=== PATIENT | male | born 1940 | race Caucasian/White ===

== ENCOUNTER → 2017-03-03 | Outpatient (CLI) | payer OTHER, BC ==
[~2017-03-03] MED LIST: ASPCH81X PO; CEPH500C2 PO; LISI10TA PO; METO-217 PO; PRLSR20 PO; SIMV20TA2 PO; TERA5CAP PO
[2017-03-03 11:08] LABS: ALT/SGPT 26 U/L (12-78); AST/SGOT 17 U/L (15-37); BLOOD UREA NITROGEN 13 mg/dl (7-18); BUN/CREATININE RATIO 13.4 (10-20); CALCIUM 9.1 mg/dl (8.5-10.1); CARBON DIOXIDE 30 mmol/L (21-32); CHLORIDE 106 mmol/L (98-107); GLUCOSE 93 mg/dl (70-99); SODIUM 141 mmol/L (136-145)
[2017-03-03 11:11] LABS: CHOLESTEROL 142 mg/dl (0-200); CHOLESTEROL/HDL RATIO 2.5; HDL CHOLESTEROL 57 mg/dl; LDL CHOLESTEROL CALCULATED 58 mg/dl; TRIGLYCERIDES 134 mg/dl (0-150); VERY LOW DENSITY LIPOPROT CALC 27 mg/dl
[2017-03-03 11:18] LABS: FREE PSA 1.21 ng/ml; PROSTATE SPECIFIC ANTIGEN 8.62 ng/ml (0.000-4.000)
[2017-03-03 11:55] LABS: ESTIMATED AVERAGE GLUCOSE 123 mg/dl; HA1C FLAG Normal (Normal)
== END | disposition home or self-care (01) ==
LOC: C.LABBC 08:01
PROVIDERS: ATTEND Internal Medicine
DX: R97.20 Elevated prostate specific antigen [PSA] (principal); E78.5 Hyperlipidemia, unspecified; R73.01 Impaired fasting glucose

== ENCOUNTER 2017-03-08 08:51 | Emergency (ER) | payer OTHER, BC ==
[~2017-03-08] VITALS: Ht 177.8 cm; Wt 82.7 kg
[2017-03-08 08:56] VITALS: TEMP 36.6; Ht 177.8 cm; Wt 82.7 kg
[2017-03-08] MEDS ORDERED: SIMV20TA2 PO (09:18)
[2017-03-08] MEDS ORDERED: PRLSR20 PO (09:18)
[2017-03-08] MEDS ORDERED: LISI10TA PO (09:18)
[2017-03-08] MEDS ORDERED: ASPCH81X PO (09:18)
[2017-03-08] MEDS ORDERED: METO-217 PO (09:18)
[2017-03-08] MEDS ORDERED: TERA5CAP PO (09:18)
[2017-03-08] MEDS ORDERED: CEPH500C2 PO (09:44)
--- NOTE | 2017-03-08 09:44 | EMERGENCY ROOM VISIT NOTE ---
ED Visit Note First contact with patient: 09:15 CHIEF COMPLAINT: Tick bite HISTORY OF PRESENT ILLNESS: Patient is a 76-year-old white male who presents to the emergency department for evaluation of a tick bite site. Patient states that he removed a tick from his medial right thigh yesterday afternoon. He used a Tick Twister and is certain that he removed the entire tick. He states that the bite site looks completely fine last evening after he removed the tick , but when he woke up today he noted that was slightly red and firm around the tick bite site. He denies that it is painful. He states that he has removed multiple ticks in the past and has had several tick bites and has never had an area appear similar to this afterwards. He denies any prior history of skin infections or abscesses. He has done nothing for his symptoms. REVIEW OF SYSTEMS: Review of systems as per HPI. All other systems reviewed were negative. At least 6 systems reviewed. PMH: Electronic medical records are reviewed and summarized as above/below. See Problem List. His tetanus is up-to-date. SOCIAL HISTORY: Patient lives at home. Non-smoker, occasional alcohol use. PHYSICAL EXAM: Vital Signs: Reviewed Nurse's notes. CONSTITUTIONAL: Patient is a well-appearing 76-year-old white male who is awake and alert and in no acute distress. INTEGUMENTARY: Examination of the proximal medial right thigh showed the tick bite site. There is a very small area of ecchymosis centrally. There is some surrounding faint erythema, with some induration of the soft tissue. No fluctuance, increased warmth or overtly cellulitic changes. No lymphangitic streaking. ED course: The patient was seen and evaluated as above. He is concerned that the area could be infected. Possibility of this was discussed with the patient , versus the area being slightly red and indurated as just a reaction to the bite. The patient was reassured that it was unlikely that the tick was in place long enough to transmit Lyme disease and he expressed understanding of this. He was encouraged to continue to monitor the area for the next 24-36 hours and was provided a prescription for Keflex that he can start should he notice any worsening signs of infection. At this time he does not have any findings for infection, cellulitis or abscess. I do not suspect retained foreign body. Problem List Medical Problems: (1) Esophageal Reflux Status: Chronic (2) Hyperlipidemia, Unspecified Status: Chronic (3) Hypertension Nos Status: Chronic (4) Tick bite Status: Resolved Current/Historical Medications Scheduled Aspirin (Aspirin Chewable), 81 MG PO QPM Cephalexin Monohydrate (Keflex), 500 MG PO TID Lisinopril (Prinivil), 10 MG PO QAM Metoprolol Succinate (Toprol Xl), 50 MG PO QAM Omeprazole (Prilosec), 20 MG PO QAM Simvastatin (Zocor), 20 MG PO QPM Terazosin (Hytrin), 5 MG PO HS Allergies Coded Allergies: No Known Allergies (Unverified , 03/08/17) Vital Signs Date Time Temp Pulse Resp B/P Pulse Ox O2 Delivery O2 Flow Rate FiO2 03/08/17 09:52 69 18 142/87 99 03/08/17 08:56 36.6 72 16 151/91 96 Room Air Departure Information Impression Primary Impression: Tick bite Prescriptions Cephalexin Monohydrate (KEFLEX) 500 Mg Cap 500 MG PO TID, #21 CAP Prov: Ekta Mcgill PA 03/08/17 Referrals Wilmer Hernandez M.D. (PCP) Patient Instructions My [facility] Additional Instructions Keep antibiotic ointment on bite site for 2 days. Use Ibuprofen or Tylenol as needed for pain/discomfort. Watch for signs of infection; increasing redness and swelling, pus like drainage or fevers. If you notice these, start the antibiotics as prescribed. Follow up with family physician for continued care and treatment; rashes, bullet lesion, muscle or joint pain or any signs of infection.
[2017-03-08 09:52] VITALS: BP 142/87; PULSE 69; O2SAT 99
== END 2017-03-08 09:53 | disposition home or self-care (01) ==
LOC: C.EDB 08:56
DX: S70.361A Insect bite (nonvenomous), right thigh, initial encounter (principal); W57.XXXA Bitten or stung by nonvenomous insect and other nonvenomous arthropods, initial encounter; I10 Essential (primary) hypertension; K21.9 Gastro-esophageal reflux disease without esophagitis; E78.5 Hyperlipidemia, unspecified; Z79.82 Long term (current) use of aspirin; Z79.899 Other long term (current) drug therapy

== ENCOUNTER 2017-04-05 09:27 | Emergency (ER) | payer OTHER, BC ==
[~2017-04-05] VITALS: Ht 170.2 cm; Wt 78.7 kg
[2017-04-05 09:30] VITALS: TEMP 36.7; Ht 170.2 cm; Wt 78.7 kg
[2017-04-05 09:50] VITALS: BP 156/94; PULSE 59; O2SAT 95
--- NOTE | 2017-04-05 09:57 | EMERGENCY ROOM VISIT NOTE ---
History Report prepared by Silvino: Madeline Ventura Under the Supervision of: Dr. Tyson Cartagena M.D. First contact with patient: 09:44 Chief Complaint: BITE Stated Complaint: TICK History of Present Illness The patient is a 76 year old male who presents to the Emergency Room with complaints of a tick bite yesterday. He was outside yesterday. [facility] and often gets tick bites. He noticed the tick bite behind the back of his right knee when he started having itching behind his right leg. He is up to date on his tetanus. Source of History: patient Onset: yesterday Position: knee (right) Quality: other (tick bite) Timing: other (persistent) Note: Pt reports itching. Review of Systems See HPI for pertinent positives & negatives. A total of 6 systems reviewed and were otherwise negative. Past Medical & Surgical Medical Problems: (1) Esophageal Reflux (2) Hyperlipidemia, Unspecified (3) Hypertension Nos (4) Tick bite Family History Hypertension Social History Smoking Status: Never Smoker Marital Status: Housing Status: lives with significant other Occupation Status: retired Current/Historical Medications Scheduled Aspirin (Aspirin Chewable), 81 MG PO QPM Cephalexin Monohydrate (Keflex), 500 MG PO TID Lisinopril (Prinivil), 10 MG PO QAM Metoprolol Succinate (Toprol Xl), 50 MG PO QAM Omeprazole (Prilosec), 20 MG PO QAM Simvastatin (Zocor), 20 MG PO QPM Terazosin (Hytrin), 5 MG PO HS Allergies Coded Allergies: No Known Allergies (Unverified , 03/08/17) Physical Exam Vital Signs Date Time Temp Pulse Resp B/P Pulse Ox O2 Delivery O2 Flow Rate FiO2 04/05/17 09:50 59 18 156/94 95 Room Air 04/05/17 09:30 36.7 63 18 143/86 98 Room Air Physical Exam GENERAL: sitting next to the bed in a chair, no distress. NEURO: awake, alert, and oriented x3. SKIN: there is a small tick embedded in the skin behind the right knee, no surrounding erythema or cellulitis, the tick is not engorged. Medical Decision & Procedures Medications Administered Medications (Trade) Dose Ordered Sig/Juvencio Route Start Time Stop Time Status Last Admin Dose Admin Doxycycline Hyclate (Vibramycin Cap) 200 mg ONE ONCE PO 04/05/17 10:00 04/05/17 10:01 DC 04/05/17 09:56 200 MG Procedure Tick removal: Using a tick twist, the tick was removed without complication. ED Course 0945: The patient was evaluated in room B7. A complete history and physical exam was performed. 951: Reevaluated the patient. Discussed results and discharge instructions: He verbalized understanding and agreement. The patient is ready for discharge. 1000: Doxycycline Hyclate 200 mg PO. Medical Decision Differential diagnoses considered include cellulitis, insect bite, tick bite. The patient presents with a tick embedded in the skin in the area of the posterior left knee. There was no cellulitis. The patient's tetanus was current. The tick was not engorged. Using a tick twist, the tick was removed without complication. The entire tick was removed. The patient was given oral doxycycline, he is being discharged, he was warned about the possibility of Lyme disease. Impression Primary Impression: Tick bite Scribe Attestation The scribe's documentation has been prepared under my direction and personally reviewed by me in its entirety. I confirm that the note above accurately reflects all work, treatment, procedures, and medical decision making performed by me. Departure Information Dispostion Home / Self-Care Referrals Wilmer Hernandez M.D. (PCP) Forms HOME CARE DOCUMENTATION FORM, IMPORTANT VISIT INFORMATION Patient Instructions My [facility] Additional Instructions watch for infection--redness or rash or fever see your doctor or us in the ER if you develop flu like symptoms
[2017-04-05] MEDS ORDERED: DOXYCYCLINE HYCLATE 100 MG CAP PO ONE (10:00)
== END 2017-04-05 10:02 | disposition home or self-care (01) ==
LOC: C.EDB 09:28
DX: S80.261A Insect bite (nonvenomous), right knee, initial encounter (principal); W57.XXXA Bitten or stung by nonvenomous insect and other nonvenomous arthropods, initial encounter; I10 Essential (primary) hypertension; E78.5 Hyperlipidemia, unspecified; K21.9 Gastro-esophageal reflux disease without esophagitis; Z79.82 Long term (current) use of aspirin; Z79.899 Other long term (current) drug therapy; Z82.49 Family history of ischemic heart disease and other diseases of the circulatory system

== ENCOUNTER → 2017-06-27 | Outpatient (CLI) | payer OTHER, BC ==
[2017-06-27 11:11] LABS: % FREE PSA 16.9 %; FREE PSA 1.03 ng/ml; PROSTATE SPECIFIC ANTIGEN 6.11 ng/ml (0.000-4.000)
== END | disposition home or self-care (01) ==
LOC: C.LABBC 09:05
PROVIDERS: ATTEND Urology
DX: R33.9 Retention of urine, unspecified (principal)

== ENCOUNTER → 2017-09-29 | Outpatient (CLI) | payer OTHER, BC ==
[~2017-09-29] MED LIST changes: -CEPH500C2 PO
[2017-09-29 11:08] LABS: ALT/SGPT 21 U/L (12-78); AST/SGOT 13 U/L (15-37); BLOOD UREA NITROGEN 13 mg/dl (7-18); BUN/CREATININE RATIO 13.7 (10-20); CALCIUM 8.9 mg/dl (8.5-10.1); CARBON DIOXIDE 27 mmol/L (21-32); CHLORIDE 105 mmol/L (98-107); CREATININE 0.97 mg/dl (0.60-1.40); GLUCOSE 99 mg/dl (70-99); POTASSIUM 4.3 mmol/L (3.5-5.1); SODIUM 139 mmol/L (136-145)
[2017-09-29 11:12] LABS: CHOLESTEROL 155 mg/dl (0-200); CHOLESTEROL/HDL RATIO 2.4; HDL CHOLESTEROL 64 mg/dl; LDL CHOLESTEROL CALCULATED 62 mg/dl; TRIGLYCERIDES 145 mg/dl (0-150); VERY LOW DENSITY LIPOPROT CALC 29 mg/dl
[2017-09-29 11:42] LABS: ESTIMATED AVERAGE GLUCOSE 120 mg/dl; HA1C FLAG Normal (Normal)
== END | disposition home or self-care (01) ==
LOC: C.LABBC 08:09
PROVIDERS: ATTEND Internal Medicine
DX: R73.03 Prediabetes (principal); E78.5 Hyperlipidemia, unspecified; I10 Essential (primary) hypertension

== ENCOUNTER → 2018-03-30 | Outpatient (CLI) | payer OTHER, BC ==
[2018-03-30 10:57] LABS: ALT/SGPT 20 U/L (12-78); AST/SGOT 13 U/L (15-37); BLOOD UREA NITROGEN 18 mg/dl (7-18); CALCIUM 9.1 mg/dl (8.5-10.1); CARBON DIOXIDE 28 mmol/L (21-32); CREATININE 1.02 mg/dl (0.60-1.40); GLUCOSE 106 mg/dl (70-99); SODIUM 140 mmol/L (136-145)
[2018-03-30 11:01] LABS: CHOLESTEROL 148 mg/dl (0-200); LDL CHOLESTEROL CALCULATED 65 mg/dl
[2018-03-30 11:02] LABS: HEMOGLOBIN A1C 5.8 % (4.5-5.6)
== END | disposition home or self-care (01) ==
LOC: C.LABBC 08:19
PROVIDERS: ATTEND Internal Medicine
DX: I10 Essential (primary) hypertension (principal); E78.5 Hyperlipidemia, unspecified; R73.03 Prediabetes

== ENCOUNTER → 2018-06-30 | Outpatient (CLI) | payer OTHER, BC | END | disposition home or self-care (01) | LOC: C.LABBC 09:05 | PROVIDERS: ATTEND Urology | DX: R97.20 Elevated prostate specific antigen [PSA] (principal) ==

== ENCOUNTER 2024-08-14 12:53 | Inpatient (IN) ==
--- NOTE | 2024-08-14 13:47 | Emergency Department Note ---
Impression & Plan Chest pain, Non-ST elevation [place] (NSTEMI) ED Provider Note HISTORY OF PRESENT ILLNESS: Patient is an 83-year-old male presenting with chest pain. Patient reports has been having intermittent episodes of chest pain over the last 3 days. Reports the pain occurs at random. He states 3 days ago it only happened once and lasted for about 10 minutes. He states that yesterday it occurred once and then today he was awoken up from sleep this morning with substernal chest pain. He states he had another episode of pain about an hour and a half prior to arrival. Describes the pain as a pressure-like sensation. Denies any radiation of the pain into his back, abdomen or shoulder. He denies any associated shortness of breath or nausea with the pain. He denies ever having pain like this before. Denies any history of DVT or PEs. Denies any history of cardiac stents. He is chest pain-free on my assessment in the ER. ROS: as above PHYSICAL EXAM: Constitutional: Patient appears in no acute distress. HENT: Head: Normocephalic and atraumatic. Eyes: EOMI, PERRL Mouth/Throat: Mucous membranes moist. Neck: Trachea midline. Neck supple. Cardiovascular: RRR, No murmurs, rubs or gallops. Intact distal pulses. Pulmonary/Chest: No respiratory distress. Breath sounds clear and equal bilaterally. No wheezes or rales. Abdominal: Abdomen soft, no tenderness, rebound or guarding. Musculoskeletal: No edema, tenderness or deformity noted. Skin: Warm and dry. No rash, erythema, pallor or cyanosis Psychiatric: Appropriate mood and affect for situation. Neurological: Alert and keenly responsive. CN II-XII grossly intact, moving all extremities equally and fully. MDM: - Vitals signs stable. - History obtained via patient. History as above. - Chronic conditions affecting care: HTN; HLD; TIA - Differential diagnoses include, but are not limited to: Acute coronary syndrome; pulmonary embolism; dissection; tension pneumothorax; esophageal rupture; pneumonia - Order placed for continuous cardiac monitoring. At this time, monitor showed rate of 67 bpm with normal sinus rhythm, per my interpretation. - External medical records reviewed. Primary care visit note dated 08/05/2024 was reviewed. Patient was seen after an ER visit for acute right upper arm pain. He was prescribed prednisone 20 mg twice daily for 7 days. - EKG interpreted by myself showed normal sinus rhythm. Rate 63 bpm. QT 444. No acute ischemic changes. Noted to have T wave inversions in leads I and aVL. When compared to an EKG from 2019, these are new inversions in the T waves. - Laboratory workup interpreted by myself showed normal WBC; normal PT/INR; stable electrolytes; elevated troponin (10.9.8); normal lipase - CXR negative for pneumonia, per my interpretation - Patient took his 81 mg aspirin this morning. Given 243 mg aspirin in the ER. - Repeat EKG obtained at 15:00, which is about 3.5 hours post last episode of chest pain. EKG interpreted by myself showed normal sinus rhythm. Rate 60 bpm. QT 450. No acute ischemic changes noted to have persistent T wave inversions in leads I and aVL. - Discussion was had with piano case maker about patient's case and need for admission - Hospitalist, Dr. Welsh, consulted for admission - [facility]. I have personally spent 37 minutes of critical care time in the direct management of this patient. This includes bedside care, interpretation of diagnostic studies, and testing, discussion with consultants, patient, and family members, and other required patient management activities. This 37 minutes is in excess of all separately billable procedures. ASSESSMENT AND PLAN: Diagnosis: chest pain; NSTEMI Plan: admit Past Med/Surg History Problem List (Updated 08/14/24 @ 14:37 by Radha Hall MD) Non-ST elevation TX (NSTEMI) (Acute) Chest pain (Acute) HTN (hypertension) (Acute) Pain in humerus (Acute) History of TIA (transient ischemic attack) B12 deficiency Current use of proton pump inhibitor TIA (transient ischemic attack) Elevated prostate specific antigen (PSA) Esophageal reflux (Acute) Enlarged prostate with lower urinary tract symptoms (LUTS) (Acute) Arthritis (Acute) Benign prostate hyperplasia (Acute) Gastro-esophageal reflux (Acute) Hyperlipidemia (Acute) Hypertension (Acute) Ocular hypertension, unspecified eye (Acute) pt unaware Incomplete emptying of bladder due to benign prostatic hyperplasia (Acute) Pre-diabetes (Acute) Primary osteoarthritis of hand (Acute) Medical History Imbalance Heel pain Encounter for pre-operative examination Osteoarthritis History of COVID-19 Swallowing difficulty History of esophageal dilatation Surgical History History of cataract surgery History of esophagogastroduodenoscopy (EGD) History of tonsillectomy Hx of prostate biopsy Family History Grandmother (Maternal) Myocardial infarction Father Aortic aneurysm Stroke Grandfather (Paternal) Cancer Family/Other Hypertension Sister Rheumatic fever Breast cancer Grandfather (Maternal) Stroke Mother Stroke Denies family history of Ovarian cancer Prostate cancer Colorectal cancer Social History Smoking Status: Never smoker Second Hand Exposure: No; Do You Dip or Chew Tobacco: No; Hx Alcohol Use: Yes Alcohol type: beer, wine and hard liquor Hx Substance Use: No Preferred Language: Albanian Communication Ability: Effective Visual Impairment: No Limitations Hearing Ability: Normal Director Of Real Estate Required: No Beliefs That Will Affect Care: None marital status: Current Living Situation: Spouse current occupational status: retired Feels Safe at Home: Yes Childhood Exposure to Second-Hand Smoke: No Dental Care, Regularly: Yes Physical Activity Frequency: 5-6 Times per Week Physical Activity Frequency Comment: cut and split wood, garcia, golf Seatbelt Use: always Sunscreen Use: No Assistive Devices: Glasses Allergies Allergies Allergy/AdvReac Type Severity Reaction Status Date / Time No Known Allergies Allergy Verified 08/05/24 09:30 Home Meds Home Medications Medication Instructions Recorded Confirmed aspirin 81 mg tablet,delayed 81 mg PO HS 06/09/19 08/14/24 release (Aspir-) omeprazole magnesium 20 mg 20 mg PO QAM 06/09/19 08/14/24 tablet,delayed release (Prilosec OTC) ibuprofen 200 mg tablet 200 mg PO Q6H PRN Pain 09/14/19 08/14/24 vitamins A,C,Z-[id number]-nvxsjh 4,296 1 cap PO BID 07/16/21 08/14/24 mcg-226 mg-90 mg capsule (PreserVision AREDS) mecobalamin (vitamin B12) 1 tab PO DAILY 05/31/22 08/14/24 Previous Rx's Medication Instructions Recorded cholecalciferol (vitamin D3) 25 25 mcg PO DAILY #30 caps 05/31/22 mcg (1,000 unit) capsule metoprolol succinate 50 mg 50 mg PO QAM #90 tabs 02/16/24 tablet,extended release 24 hr simvastatin 20 mg tablet 20 mg PO HS #90 tabs 02/16/24 lisinopril 10 mg tablet 10 mg PO QAM #90 tabs 04/05/24 terazosin 5 mg capsule 5 mg PO HS #90 caps 06/22/24 oxybutynin chloride 5 mg 5 mg PO DAILY #90 tabs 06/29/24 tablet,extended release 24 hr Results & Data (ED) Vital Signs Vital Signs - 24 hr 08/14/24 12:57 08/14/24 13:10 08/14/24 13:21 Temperature 36.5 C Temperature Source Temporal Artery Scan Pulse Rate 73 67 Pulse Rate [Right Finger] Respiratory Rate 20 Respiratory Effort / Characteristics Blood Pressure 138/99 Blood Pressure [Left Arm] Blood Pressure Mean 112 Blood Pressure Mean [Left Arm] Blood Pressure Position [Left Arm] Pulse Oximetry 95 94 Oxygen Delivery Method Room Air Room Air Oxygen Flow Rate 0 Sepsis Recent Fever Within 48 Hours No Sepsis New/Unexplained Change in Mental Status N/A Sepsis Action Taken by Nursing No Action Required 08/14/24 13:21 08/14/24 13:27 Temperature Temperature Source Pulse Rate Pulse Rate [Right Finger] 67 Respiratory Rate 18 Respiratory Effort / Characteristics Non-Labored Spontaneous Blood Pressure Blood Pressure [Left Arm] 137/91 Blood Pressure Mean Blood Pressure Mean [Left Arm] 106 Blood Pressure Position [Left Arm] Lying Pulse Oximetry 94 Oxygen Delivery Method Room Air Room Air Oxygen Flow Rate Sepsis Recent Fever Within 48 Hours Sepsis New/Unexplained Change in Mental Status Sepsis Action Taken by Nursing Laboratory Data 08/14/24 13:27 08/14/24 13:27 Lab Results 08/14/24 Range/Units 13:27 WBC 9.56 (4.8-10.8) K/ul RBC 5.30 (4.70-6.10) M/uL Hgb 14.9 (14.0-18.0) g/dl Hct 45.0 (42.0-52.0) % MCV 84.9 (80.0-100.0) fL MCH 28.1 (25.0-34.0) pg MCHC 33.1 (32.0-36.0) g/dL RDW Std Deviation 43.9 (36.4-46.3) fL RDW Coeff of Sergio 14.3 (11.5-14.5) % Plt Count 141 (130-400) K/uL MPV 11.7 (9.4-12.4) fL Immature Gran % (Auto) 1.8 % Neut % (Auto) 65.5 % Lymph % (Auto) 20.9 % [place] % (Auto) 9.9 % Eos % (Auto) 1.4 % Baso % (Auto) 0.5 % Neut # (Auto) 6.26 (1.40-6.50) K/uL Lymph # (Auto) 2.00 (1.20-3.40) K/uL [place] # (Auto) 0.95 H (0.11-0.59) K/uL Eos # (Auto) 0.13 (0.00-0.50) K/uL Baso # (Auto) 0.05 (0.00-0.20) K/uL Immature Gran # (Auto) 0.17 (0.01-0.20) K/uL PT 11.4 (9.0-12.0) Seconds INR 1.1 (0.9-1.1) Sodium 137 (136-145) mmol/L Potassium 4.1 (3.5-5.1) mmol/L Chloride 105 (98-107) mmol/L Carbon Dioxide 27 (21-32) mmol/L Anion Gap 5 (3-11) BUN 20 (6-23) mg/dl Creatinine 0.93 (0.6-1.4) mg/dl Est Cr Clr Drug Dosing 61.1 ml/min Est GFR ( Amer) 87.1 ml/min Est GFR (Non-Af Amer) 75.1 ml/min BUN/Creatinine Ratio 21.5 H (10-20) Glucose 108 H (70-99(Fasting)) mg/dl Calcium 9.2 (8.6-10.3) mg/dl Magnesium 2.0 (1.7-2.4) mg/dl Total Bilirubin 2.0 H (0.2-1.0) mg/dl AST 11 L (13-39) U/L ALT 12 (7-52) U/L Alkaline Phosphatase 60 (34-104) U/L Troponin I High Sens 109.8 H* (0-20) pg/ml Total Protein 6.2 (6.0-8.3) gm/dl Albumin 3.9 (3.4-5.0) gm/dl Globulin 2.3 L (2.5-4.0) gm/dl Albumin/Globulin Ratio 1.7 (0.9-2) Lipase 27 (11-82) U/L Administered Medications Discontinued Medications Aspirin (Aspirin Chew 324 Mg) 243 mg PO NOW STA Stop: 08/14/24 14:31 Last Admin: 08/14/24 14:39 Dose: 243 mg Documented By: DEZ Imaging Data Radiologist's Impression: Chest X-Ray 08/14/24 13:27 SINGLE VIEW CHEST CLINICAL HISTORY: Atypical chest pain FINDINGS: An AP, portable, upright chest radiograph is compared to study dated 08/31/2019. The heart is enlarged noting atherosclerotic calcification of the thoracic aorta. The pulmonary vasculature is noncongested. There is mild bibasilar scarring/atelectasis. The lungs and pleural spaces are otherwise clear. No pneumothorax is seen. The skeletal structures are osteopenic. The bony thorax is grossly intact. Degenerative change is noted in the shoulders and spine. IMPRESSION: Cardiomegaly with no active disease in the chest. ACT 112: Negative or not required by law. Electronically signed by: Tyson Ruiz M.D. 08/14/2024 2:42 PM Discharge Plan Visit Data Chief Complaint: Chest Pain Stated Complaint: CHEST PAIN ED Provider: Radha Hall Discharge Problem: Chest pain, Non-ST elevation [place] (NSTEMI) Forms Stand Alone Forms: My [facility] Prescriptions Prescriptions: No Action metoprolol succinate 50 mg tablet extended release 24 hr 50 mg PO QAM Qty: 90 3RF simvastatin 20 mg tablet 20 mg PO HS Qty: 90 3RF lisinopril 10 mg tablet 10 mg PO QAM Qty: 90 3RF terazosin 5 mg capsule 5 mg PO HS Qty: 90 3RF PreserVision AREDS [id number] [id number] capsule 1 cap PO BID mecobalamin (vitamin B12) 1 tab PO DAILY cholecalciferol (vitamin D3) 25 mcg (1,000 unit) capsule 25 mcg PO DAILY Qty: 30 0RF oxybutynin chloride 5 mg tablet extended release 24hr 5 mg PO DAILY Qty: 90 3RF aspirin [Aspir-81] 81 mg tablet,delayed release (DR/EC) 81 mg PO HS Prilosec OTC 20 mg tablet,delayed release (DR/EC) 20 mg PO QAM ibuprofen 200 mg Tablet 200 mg PO Q6H PRN (Reason: Pain) Referrals Referrals: Pro,Wilmer De La Garza MD [Primary Care Provider] -
[2024-08-14 13:55] LABS: Basophils # (auto) 0.05 K/uL (0.00-0.20); Basophils % (auto) 0.5 %; Eosinophils # (auto) 0.13 K/uL (0.00-0.50); Eosinophils % (auto) 1.4 %; Hemoglobin 14.9 g/dl (14.0-18.0); Immature Granulocytes # (auto) 0.17 K/uL (0.01-0.20); Immature Granulocytes % (auto) 1.8 %; Lymphocytes % (auto) 20.9 %; Mean Corpuscular Hemoglobin 28.1 pg (25.0-34.0); Mean Corpuscular Hgb Conc 33.1 g/dL (32.0-36.0); Mean Corpuscular Volume 84.9 fL (80.0-100.0); Mean Platelet Volume 11.7 fL (9.4-12.4); Monocytes # (auto) 0.95 K/uL (0.11-0.59); Monocytes % (auto) 9.9 %; Neutrophils # (auto) 6.26 K/uL (1.40-6.50); Neutrophils % (auto) 65.5 %; Platelet Count 141 K/uL (130-400); RDW Coefficient of Variation 14.3 % (11.5-14.5); RDW Standard Deviation 43.9 fL (36.4-46.3); White Blood Count 9.56 K/ul (4.8-10.8)
[2024-08-14 14:04] LABS: Albumin Globulin Ratio 1.7 (0.9-2); Albumin Level 3.9 gm/dl (3.4-5.0); BUN Creatinine Ratio 21.5 (10-20); Calcium 9.2 mg/dl (8.6-10.3); Creatinine Clr Calc Pharmacy 61.1 ml/min; Est GFR (African American) 87.1 ml/min; Est GFR (Non-African American) 75.1 ml/min; Globulin 2.3 gm/dl (2.5-4.0); Potassium 4.1 mmol/L (3.5-5.1); Total Protein 6.2 gm/dl (6.0-8.3)
[2024-08-14 14:28] LABS: Troponin I High Sensitivity 109.8 pg/ml (0-20)
[2024-08-14 14:30] LABS: INR 1.1 (0.9-1.1); Prothrombin Time 11.4 Seconds (9.0-12.0)
[2024-08-14] MEDS: ASPIRIN CHEW 324 MG PO STA (14:39)
--- NOTE | 2024-08-14 14:44 | XRay Report ---
SINGLE VIEW CHEST CLINICAL HISTORY: Atypical chest pain FINDINGS: An AP, portable, upright chest radiograph is compared to study dated 08/31/2019. The heart is enlarged noting atherosclerotic calcification of the thoracic aorta. The pulmonary vasculature is noncongested. There is mild bibasilar scarring/atelectasis. The lungs and pleural spaces are otherwis e clear. No pneumothorax is seen. The skeletal structures are osteopenic. The bony thorax is grossly intact. Degenerative change is noted in the shoulders and spine. IMPRESSION: Cardiomegaly with no active disease in the chest. ACT 112: Negative or not required by law. Electronically signed by: Tyson Ruiz M.D. 08/14/2024 2:42 PM
--- NOTE | 2024-08-14 15:10 | History & Physical Report ---
Date of Service August 14, 2024 Assessment & Plan (1) Chest pain: Plan: Chest pain, NSTEMI Intermittent episodes of chest pain in the last 3 days, these of occurred at rest and of lasted less than 20 minutes. They are not exercise associated. Patient has been under increased stress and his is currently admitted to the hospital EKG compared to 2019 with new anterolateral T wave inversions History of hyperlipidemia, hypertension. No history of prior CAD, no history of DM, no history of tobacco use, no early family history of CAD Initial troponin 109.8, repeat troponin pending Differential includes GERD does have a history of esophageal spasm and hiatal hernia on PPI Took his morning aspirin, received additional aspirin to bring to full dose while in the ER Chest pain-free on ER evaluation Due to new EKG changes, elevated troponin, and substernal chest pain at rest will treat as unstable angina/NSTEMI and heparinize Echo pending Cardiology consulted. Will likely require cath. Currently is chest pain-free. Pending recurrent chest pain, stat EKG repeat, nitro, and notify cardiology (2) Non-ST elevation IA (NSTEMI): (3) Hypertension: Plan: Lisinopril, metoprolol continued (4) Hyperlipidemia: Plan: Simvastatin switched to rosuvastatin 20 mg, lipid panel pending (5) Gastro-esophageal reflux: Plan: Convert PPI to Protonix while inpatient. Plan DVT prophylaxis: Anticoagulated Diet: Clears, n.p.o. at midnight Disposition: PCU CODE STATUS: Full code History of Present Illness Primary Care Provider: Wilmer Hernandez MD Ant is an 83-year-old male with a past medical history of TIA, hypertension, NSTEMI, pre-DM, BPH with LUTS who presents with intermittent chest pain for 3 days. Pain is intermittent and awoke him from sleep last night with a substernal quality. Had another episode of pain an hour and a half prior to presentation to the ER with a pressure-like sensation which caused him to present to the ER. No history of cardiac stents. Chest pain-free while in the ER. Troponin on admission is 109.8, EKG is normal sinus rhythm with no ST segment changes but new T wave inversions in anterior lateral leads compared to prior in 2019 Ant is seen at the bedside. He reports he has had intermittent chest pressure episodes lasting ~15 minutes. Substernal, did not radiate. Was more pressure than but with with 8/10 intensity No pain on admissions One episode thrusday, once jarrett, once this morning at rest. 4 total episodes Pt initially denies sweating and dyspnea, but his daughter in law notes he had to hold the counter, was bent over clutching his chest panting, and having to take deep breaths and breathing was not normal which the patient acknowledges "Yea I guess thats true" Highest level of exertion is splitting firewood and walking around at games. No limiting dypsnea, chest pain doing those activities recently. Does have a history of GERD on prilosec on hiatal hernia No history DM +history of HTN on lisinopril/metoprolol +HLD on simvastatin No leg swelling NO orthopnea No recent illnsses. No fevers, chills, or sweats no cough No nausea/vomtiing/diarrhea/constipation No history of heart disease/IA No first degree relatives with heart disease MOther had a stroke in 70s Medical History: Reviewed Medications: Reviewed Surgical History: Reviewed Family history: Reviewed Allergies: Reviewed. NKDA Social History: No tobacco use. Social ETOH use 2-3 drinks per week total Code Status: Full Code Allergies Allergy/AdvReac Type Severity Reaction Status Date / Time No Known Allergies Allergy Verified 08/05/24 09:30 Home Medications Medication Instructions Recorded Confirmed Type aspirin 81 mg tablet,delayed 81 mg PO HS 06/09/19 08/14/24 History release (Aspir-) omeprazole magnesium 20 mg 20 mg PO QAM 06/09/19 08/14/24 History tablet,delayed release (Prilosec OTC) ibuprofen 200 mg tablet 200 mg PO Q6H PRN Pain 09/14/19 08/14/24 History vitamins A,C,X-sqcy-cfedxf 4,296 1 cap PO BID 07/16/21 08/14/24 History mcg-226 mg-90 mg capsule (PreserVision AREDS) cholecalciferol (vitamin D3) 25 25 mcg PO DAILY #30 caps 05/31/22 08/14/24 Rx mcg (1,000 unit) capsule mecobalamin (vitamin B12) 1 tab PO DAILY 05/31/22 08/14/24 History metoprolol succinate 50 mg 50 mg PO QAM #90 tabs 02/16/24 08/14/24 Rx tablet,extended release 24 hr simvastatin 20 mg tablet 20 mg PO HS #90 tabs 02/16/24 08/14/24 Rx lisinopril 10 mg tablet 10 mg PO QAM #90 tabs 04/05/24 08/14/24 Rx terazosin 5 mg capsule 5 mg PO HS #90 caps 06/22/24 08/14/24 Rx oxybutynin chloride 5 mg 5 mg PO DAILY #90 tabs 06/29/24 08/14/24 Rx tablet,extended release 24 hr Past Med/Surg History Problem List (Updated 08/14/24 @ 14:37 by Radha Hall MD) Non-ST elevation IA (NSTEMI) (Acute) Chest pain (Acute) HTN (hypertension) (Acute) Pain in humerus (Acute) History of TIA (transient ischemic attack) B12 deficiency Current use of proton pump inhibitor TIA (transient ischemic attack) Elevated prostate specific antigen (PSA) Esophageal reflux (Acute) Enlarged prostate with lower urinary tract symptoms (LUTS) (Acute) Arthritis (Acute) Benign prostate hyperplasia (Acute) Gastro-esophageal reflux (Acute) Hyperlipidemia (Acute) Hypertension (Acute) Ocular hypertension, unspecified eye (Acute) pt unaware Incomplete emptying of bladder due to benign prostatic hyperplasia (Acute) Pre-diabetes (Acute) Primary osteoarthritis of hand (Acute) Medical History Imbalance Heel pain Encounter for pre-operative examination Osteoarthritis History of COVID-19 Swallowing difficulty History of esophageal dilatation Surgical History History of cataract surgery History of esophagogastroduodenoscopy (EGD) History of tonsillectomy Hx of prostate biopsy Family History Grandmother (Maternal) Myocardial infarction Father Aortic aneurysm Stroke Grandfather (Paternal) Cancer Family/Other Hypertension Sister Rheumatic fever Breast cancer Grandfather (Maternal) Stroke Mother Stroke Denies family history of Ovarian cancer Prostate cancer Colorectal cancer Social History Smoking Status: Never smoker Second Hand Exposure: No; Do You Dip or Chew Tobacco: No; Hx Alcohol Use: Yes Alcohol type: beer, wine and hard liquor Hx Substance Use: No Preferred Language: Armenian Communication Ability: Effective Visual Impairment: No Limitations Hearing Ability: Normal Pool Coordinator Required: No Beliefs That Will Affect Care: None marital status: Current Living Situation: Spouse current occupational status: retired Feels Safe at Home: Yes Childhood Exposure to Second-Hand Smoke: No Dental Care, Regularly: Yes Physical Activity Frequency: 5-6 Times per Week Physical Activity Frequency Comment: cut and split wood, garcia, golf Seatbelt Use: always Sunscreen Use: No Assistive Devices: Glasses Physical Exam Physical Exam: General: A&Ox3. NAD. Cooperative. HEENT: Atraumatic, normocephalic. Vision and hearing grossly intact Pulm: CTAB A&P. -wheezes, -rales, -rhonchi. Symmetrical chest rise. No increased work of breathing. No respiratory distress. Cardiac: RRR, -mrg. Radial pulses intact and symmetrical. No JVD Abdominal: Nontender, nondistended, soft. BS present. Ext: warm, dry, no edema. Attenuator strength 5/5 bilaterally, sensation soft touch intact in hands and feet. Results & Data Results & Data Vital Signs (Past 12 Hours) Vital Signs Temp Pulse Pulse Resp BP BP Pulse Ox 08/14/24 13:27 08/14/24 13:21 67 18 137/91 94 08/14/24 13:21 94 08/14/24 13:10 67 08/14/24 12:57 36.5 C 73 20 138/99 95 O2 Del Method O2 Flow Rate 08/14/24 13:27 Room Air 08/14/24 13:21 Room Air 08/14/24 13:21 Room Air 0 08/14/24 13:10 08/14/24 12:57 Room Air PG Care Time/CCT Total # of Minutes Spent Total Time Spent with Patient: Total time spent is greater than 50% in coordination of care (as documented) at patient's floor/unit and/or counseling patient: Coding Level of Care Code 78003 INT INP/OBS CARE 3/75MIN Diagnoses Chest pain R07.9 Non-ST elevation IA (NSTEMI) I21.4 Hypertension I10 Hyperlipidemia E78.5 Gastro-esophageal reflux K21.9
[2024-08-14] MEDS ORDERED: NITROGLYCERIN SL 0.4 MG/TAB TAB SL PRN (15:41)
[2024-08-14] MEDS: Heparin IV Adult Wt-Based Low-Dose w/ INITIAL Bolus Protocol IV STA (15:50)
[2024-08-14 15:56] LABS: Partial Thromboplastin Ratio 0.9; Partial Thromboplastin Time 25 Seconds (21-31)
[2024-08-14] MEDS: HEPARIN SOD (PORCINE) 1000 UNIT/ML IV ONE (16:54)
[2024-08-14] MEDS: HEPARIN SODIUM/DEXTROSE 25,000 UNITS/500 ML BAG IV SCH (16:56)
[2024-08-14] MEDS ORDERED: POLYETHYLENE (MIRALAX) 17 GM PACK PO PRN (17:55)
[2024-08-14] MEDS: ASPIRIN 81 MG ECTAB PO SCH (21:25)
[2024-08-15 00:31] LABS: ANTI-Xa, UFH(UnfractionatedHep 0.57 IU/ml (0.3-0.7)
[2024-08-15 06:16] LABS: Chol HDL Ratio 2.8 (0-5)
[2024-08-15] MEDS: METOPROLOL SUCC 50MG EXT REL TAB PO SCH (08:37)
[2024-08-15] MEDS: ROSUVASTATIN CALCIUM 20 MG TAB PO SCH (08:37)
[2024-08-15] MEDS: PANTOprazole 40 MG TAB PO SCH (08:37)
[2024-08-15] MEDS: lisinopril 10 MG TAB PO SCH (08:37)
--- NOTE | 2024-08-15 09:36 | Hospitalist Progress Note ---
Date of Service August 15, 2024 Assessment & Plan (1) Chest pain: Plan: Chest pain, NSTEMI, unstable angina History of hyperlipidemia, hypertension. No history of prior CAD, no history of DM, no history of tobacco use, no early family history of CAD Intermittent episodes of chest pain in the last 3 days, these of occurred at rest and of lasted less than 20 minutes. They are not exercise associated. Patient has been under increased stress and his is currently admitted to the hospital Chest pain-free on admission EKG compared to 2019 with new anterolateral T wave inversions Troponin reviewed - initial elevated and peaked at 115, trended downward Due to new EKG changes, elevated troponin, and substernal chest pain at rest - treated as unstable angina/NSTEMI and heparinized on admission Echo with preserved EF and without wall motion abnormalities or valvular disease Cardiology consulted. Cardiac cath on 08/16/24. Currently is chest pain-free. Pending recurrent chest pain = stat EKG repeat, nitro, and notify cardiology. Differential includes GERD - does have a history of esophageal spasm and hiatal hernia on PPI -Follow CBC, BMP, magnesium in the morning (2) Non-ST elevation VA (NSTEMI): Plan: - see chest pain plan above (3) Hypertension: Plan: stable, blood pressure is mildly elevated continue home Lisinopril and metoprolol - hold lisinopril before cardiac catheterization -Resume home Hytrin (4) Hyperlipidemia: Plan: - Simvastatin switched to rosuvastatin 20 mg on admission - lipid panel reviewed, WNL (5) Benign prostate hyperplasia: Plan: - home oxybutynin and terazosin held on admission-unclear reason - continue to monitor for signs of urinary retention -Resume Hytrin (6) Gastro-esophageal reflux: Plan: Convert PPI to Protonix while inpatient (7) Pre-diabetes: Plan: Last hemoglobin A1c in 10/2023 is 5.8% Check hemoglobin A1c in the morning Plan DVT prophylaxis: Anticoagulated Diet: heart healthy; NPO after midnight Disposition: PCU CODE STATUS: Full code Admission and Anticipated Discharge Date Admission Date: August 14, 2024 Supervising Physician Co-Signing Physician Notes [place] Supervision Note: I personally saw and examined the patient. I verified all bonilla points and agree with JAMAICA Cruz with the following exceptions and/or additions: S-patient had a 10-minute long episode that was mild of chest pressure during the day today but he did not tell anyone about it, it went away on its own. Otherwise feeling well. No nausea or vomiting, no other complaints O- Vitals reviewed Gen: AAOx3, NAD HEENT: Anicteric sclerae, EOMI CV: RRR no mgr nl S1S2 Pulm: CTAB no wcr Abd: +BS soft NT ND no masses or hernias Ext: No edema Skin: No rashes, warm/dry Neuro: Full strength throughout Lipids, troponin, ECGs reviewed Echocardiogram reviewed A/B-11-wqgu-old male here with unstable angina and NSTEMI, on heparin drip, converted to high intensity statin, continue beta-klever, aspirin Plan for cardiac catheterization tomorrow N.p.o. after midnight Advised patient to let nursing know if he has recurrence of chest pain Subjective Patient doing well. He denies chest pain today. He is to have a cardiac cath tomorrow. Patient denies dizziness, lightheadedness, dyspnea, abdominal pain, difficulty urinating, dysuria, hematuria, edema, numbness, tingling. He has been OOB and walking in halls. Tele: Sinus rhythm with occasional PVCs, rate 60-70. Review of Systems Review of Systems: See HPI Physical Exam Physical Exam: The patient is awake, alert and oriented 3, well developed and well nourished, normocephalic and atraumatic, in no acute distress. Non-toxic appearing. HEENT- EOMI, mucous membranes moist. Hearing grossly intact. Heart-normal S1 and S2. No murmurs, rubs or gallops. Lungs-clear bilaterally, no respiratory distress, no accessory muscle use. Abdomen-normal bowel sounds and soft. No ascites noted. Non-tender. Extremities- no clubbing, cyanosis, or edema. Rheumatologic-normal range of motion. Psychiatric-normal affect. Results & Data Results & Data Vital Signs (Past 12 Hours) Vital Signs Temp Pulse Pulse Resp BP Pulse Ox O2 Del Method 08/15/24 08:02 36.6 C 64 18 137/94 95 Room Air 08/15/24 07:19 63 08/15/24 03:37 36.6 C 68 16 146/94 H 96 Room Air 08/14/24 22:49 36.7 C 75 18 155/95 H 96 Room Air 08/14/24 21:49 75 08/14/24 21:40 Room Air Laboratory Results Lipid panel, troponins reviewed PG Care Time/CCT Total # of Minutes Spent Total Time Spent with Patient: Total time spent is greater than 50% in coordination of care (as documented) at patient's floor/unit and/or counseling patient: Coding Level of Care Code None Diagnoses Chest pain R07.9 Non-ST elevation VA (NSTEMI) I21.4 Hypertension I10 Hyperlipidemia E78.5 Benign prostate hyperplasia N40.0 Gastro-esophageal reflux K21.9 Pre-diabetes R73.03
--- NOTE | 2024-08-15 12:45 | Cardiology Consultation ---
Date of Consultation August 15, 2024 Assessment & Plan (1) Non-ST elevation DC (NSTEMI): (2) Chest pain: (3) History of TIA (transient ischemic attack): (4) Hyperlipidemia: (5) Hypertension: Plan The escalating nature of his symptoms warrants left heart catheterization. I will get him set up for cath tomorrow. He should be maintained n.p.o. after midnight tonight. Depending on the results of the cath further recommendations will follow. He already seems to be on appropriate medical therapy at this time. His echo was done today and I will review that later today. Thank you for allowing me to participate in care of this very nice gentleman. I look forward to participating in his care with you. History of Present Illness Reason for Consultation: Thank you for allowing me to evaluate Mr. Ant gaspar. As you know he is an 83-year-old gentleman who was usual state of health up until the last several days when he was having stuttering chest discomfort. He describes this as a severe heavy pressure sensation in his chest which lasted anywhere from 10 to 15 minutes. It would come and go and relieve spontaneously. Yesterday he presented to the emergency room because he felt much worse with this. His Attending Physician: Galina Whitley MD History of Present Illness Thank you for the consult on Mr. Ant Gaspar. He is a previously well 83-year-old gentleman who over the last several days has noted escalating chest discomfort which has been stuttering in nature. The chest discomfort had Allatt has lasted anywhere from 10 to 15 minutes and he describes this as a pressure pressure heavy sensation in his chest. It is not necessarily with activity however yesterday when he came to the hospital he reports that his symptoms were more severe. His initial EKG in the emergency room shows deep T wave inversions in leads I, aVL and V2. These EKG changes are new compared to the prior EKG we have available from 2019. His cardiac enzymes were also abnormal his initial troponin was 115 and has trended down overnight. He has not had further chest discomfort through the night. As far as he recalls he has not had any cardiac testing in the past. He has been under a little bit of stress recently regarding his who had knee replacement surgery and had several complications and setbacks afterwards. She is at home now but cannot be left alone for too long. His son who lives in [place] is staying with her at this time. Because of the abnormal EKG as well as his cardiac enzymes and is suspicious sounding symptoms I have recommended that he undergo a left heart catheterization to define his coronary anatomy. Depending on the results of the catheterization, further recommendations will follow. The risk and benefit of the procedure was discussed with the patient and he is agreeable to proceed. I would treat him at this time with aspirin he remains on IV heparin would continue on metoprolol as well as statin. His most recent lipids from today showed a total cholesterol 136 LDL is 69 HDL is 48 triglycerides are 102 Allergies Allergy/AdvReac Type Severity Reaction Status Date / Time No Known Allergies Allergy Verified 08/05/24 09:30 Home Medications Medication Instructions Recorded Confirmed Type aspirin 81 mg tablet,delayed 81 mg PO HS 06/09/19 08/14/24 History release (Aspir-) omeprazole magnesium 20 mg 20 mg PO QAM 06/09/19 08/14/24 History tablet,delayed release (Prilosec OTC) ibuprofen 200 mg tablet 200 mg PO Q6H PRN Pain 09/14/19 08/14/24 History vitamins A,C,E-iuez-vzfkbz 4,296 1 cap PO BID 07/16/21 08/14/24 History mcg-226 mg-90 mg capsule (PreserVision AREDS) cholecalciferol (vitamin D3) 25 25 mcg PO DAILY #30 caps 05/31/22 08/14/24 Rx mcg (1,000 unit) capsule mecobalamin (vitamin B12) 1 tab PO DAILY 05/31/22 08/14/24 History metoprolol succinate 50 mg 50 mg PO QAM #90 tabs 02/16/24 08/14/24 Rx tablet,extended release 24 hr simvastatin 20 mg tablet 20 mg PO HS #90 tabs 02/16/24 08/14/24 Rx lisinopril 10 mg tablet 10 mg PO QAM #90 tabs 04/05/24 08/14/24 Rx terazosin 5 mg capsule 5 mg PO HS #90 caps 06/22/24 08/14/24 Rx oxybutynin chloride 5 mg 5 mg PO DAILY #90 tabs 06/29/24 08/14/24 Rx tablet,extended release 24 hr Patient History Medical History Imbalance Heel pain Encounter for pre-operative examination Osteoarthritis History of COVID-19 11/2019; body aches, fatigue; resolved. Swallowing difficulty History of esophageal dilatation Surgical History History of cataract surgery History of esophagogastroduodenoscopy (EGD) History of tonsillectomy Hx of prostate biopsy Family History Grandmother (Maternal) Myocardial infarction Father Aortic aneurysm Stroke Grandfather (Paternal) Cancer Family/Other Hypertension Sister Rheumatic fever Breast cancer Grandfather (Maternal) Stroke Mother Stroke Denies family history of Ovarian cancer Prostate cancer Colorectal cancer Social History Smoking Status: Never smoker Second Hand Exposure: No; Do You Dip or Chew Tobacco: No; Hx Alcohol Use: Yes Alcohol type: beer Hx Substance Use: No Preferred Language: Sami Communication Ability: Effective Visual Impairment: No Limitations Hearing Ability: Normal Stress Test Technician Required: No Beliefs That Will Affect Care: None marital status: Current Living Situation: Spouse current occupational status: retired Other Information That Helps Us Care for You: No Feels Safe at Home: Yes Safety Concerns: Feels Safe At This Time Childhood Exposure to Second-Hand Smoke: No Dental Care, Regularly: Yes Physical Activity Frequency: 5-6 Times per Week Physical Activity Frequency Comment: cut and split wood, garcia, golf Seatbelt Use: always Sunscreen Use: No Assistive Devices: Glasses Review of Systems Review of Systems: All systems reviewed & are unremarkable except as noted in HPI & below Physical Exam Physical Exam: Awake alert oriented in no distress comfortable with no pain Respiratory: Lungs clear to auscultation bilaterally no rales Cardiovascular: Soft systolic murmur at the base consistent with aortic sclerosis. No edema noted Results & Data Vital Signs (Past 12 Hours) Vital Signs Temp Pulse Pulse Resp BP Pulse Ox O2 Del Method 08/15/24 11:29 36.5 C 64 17 145/92 H 97 Room Air 08/15/24 08:02 36.6 C 64 18 137/94 95 Room Air 08/15/24 07:19 63 08/15/24 03:37 36.6 C 68 16 146/94 H 96 Room Air Laboratory Results Abnormal lab results 08/14/24 08/14/24 08/14/24 Range/Units 13:27 15:28 23:37 [place] # (Auto) 0.95 H (0.11-0.59) K/uL BUN/Creatinine Ratio 21.5 H (10-20) Glucose 108 H (70-99(Fasting)) mg/dl Total Bilirubin 2.0 H (0.2-1.0) mg/dl AST 11 L (13-39) U/L Troponin I High Sens 109.8 H* 115.3 H* 85.5 H* D (0-20) pg/ml Globulin 2.3 L (2.5-4.0) gm/dl 08/15/24 08/15/24 Range/Units 05:36 11:52 [place] # (Auto) (0.11-0.59) K/uL BUN/Creatinine Ratio (10-20) Glucose (70-99(Fasting)) mg/dl Total Bilirubin (0.2-1.0) mg/dl AST (13-39) U/L Troponin I High Sens 60.0 H* D 45.2 H D (0-20) pg/ml Globulin (2.5-4.0) gm/dl ECG Additional Comments: Normal sinus rhythm with lateral and anterior ST-T wave changes
--- NOTE | 2024-08-15 16:35 | Electrocardiogram Report ---
Test Reason : Blood Pressure : */* mmHG Vent. Rate : 63 BPM Atrial Rate : 63 BPM P-R Int : 192 ms QRS Dur : 80 ms QT Int : 444 ms P-R-T Axes : 4 -28 140 degrees QTcB Int : 454 ms Normal sinus rhythm Left ventricular hypertrophy with repolarization abnormality ( R in aVL ) Lateral and septal T wave abnormality Left axis deviation Abnormal ECG When compared with ECG of 31-Aug-2019 10:45, T wave inversion now evident in Anterolateral leads Confirmed by Nereyda Moon (Perez) on 08/15/2024 4:35:12 PM Referred By: REFERRED SELF Confirmed By: Nereyda Moon
--- NOTE | 2024-08-15 16:38 | Electrocardiogram Report ---
Test Reason : Blood Pressure : */* mmHG Vent. Rate : 60 BPM Atrial Rate : 60 BPM P-R Int : 208 ms QRS Dur : 86 ms QT Int : 450 ms P-R-T Axes : 9 -27 141 degrees QTcB Int : 450 ms Normal sinus rhythm Left ventricular hypertrophy with repolarization abnormality ( R in aVL ) Laternal and septal T wave inversion Abnormal ECG When compared with ECG of 14-Aug-2024 13:06, (unconfirmed) T wave inversion less evident in Anterior leads Confirmed by Nereyda Moon ([id number]) on 08/15/2024 4:38:32 PM Referred By: REFERRED SELF Confirmed By: Nereyda Moon
--- NOTE | 2024-08-15 19:12 | Billing Data ---
Date of Service August 15, 2024 Coding Level of Care Code 84261 SUB INP/OBS CARE
[2024-08-15] MEDS: TERAZOSIN HCL 5 MG CAP PO SCH (19:58)
[2024-08-16 06:00] LABS: Hemoglobin 15.9 g/dl (14.0-18.0); Mean Corpuscular Hemoglobin 28.5 pg (25.0-34.0); Mean Corpuscular Hgb Conc 33.8 g/dL (32.0-36.0); Mean Corpuscular Volume 84.2 fL (80.0-100.0); Mean Platelet Volume 11.2 fL (9.4-12.4); Platelet Count 141 K/uL (130-400); RDW Coefficient of Variation 14.3 % (11.5-14.5); RDW Standard Deviation 43.7 fL (36.4-46.3); Red Blood Count 5.58 M/uL (4.70-6.10); White Blood Count 16.03 K/ul (4.8-10.8)
[2024-08-16 06:14] LABS: BUN Creatinine Ratio 15.6 (10-20); Calcium 9.4 mg/dl (8.6-10.3); Creatinine Clr Calc Pharmacy 52.4 ml/min; Est GFR (African American) 71.9 ml/min; Potassium 4.1 mmol/L (3.5-5.1)
[2024-08-16 06:23] LABS: ANTI-Xa, UFH(UnfractionatedHep 0.62 IU/ml (0.3-0.7)
--- NOTE | 2024-08-16 07:42 | Electrocardiogram Report ---
Test Reason : Blood Pressure : */* mmHG Vent. Rate : 65 BPM Atrial Rate : 65 BPM P-R Int : 202 ms QRS Dur : 84 ms QT Int : 444 ms P-R-T Axes : -2 -23 128 degrees QTcB Int : 461 ms Normal sinus rhythm Prolonged QT Abnormal ECG When compared with ECG of 14-Aug-2024 14:56, T wave inversion more evident in Anterior leads Confirmed by Nereyda Moon (Perez) on 08/16/2024 7:41:28 AM Referred By: REFERRED SELF Confirmed By: Nereyda Moon
--- NOTE | 2024-08-16 08:11 | Pre Anesthesia Assessment ---
Date of Service August 16, 2024 Pre Sedation Assessment Vital Signs Temp Pulse Pulse Pulse Resp BP Pulse Ox 08/16/24 07:58 75 08/16/24 07:50 78 16 128/100 98 08/16/24 07:45 97.7 F 70 18 135/88 97 08/16/24 06:21 97.9 F 71 18 148/88 H 96 08/16/24 03:12 98.1 F 93 H 18 159/99 H 97 08/15/24 22:44 76 08/15/24 22:37 98.1 F 69 16 131/84 96 08/15/24 19:36 97.7 F 85 20 112/74 95 08/15/24 15:51 98.6 F 73 18 155/97 H 96 08/15/24 14:43 85 08/15/24 11:29 97.7 F 64 17 145/92 H 97 O2 Del Method 08/16/24 07:58 08/16/24 07:50 Room Air 08/16/24 07:45 Room Air 08/16/24 06:21 Room Air 08/16/24 03:12 Room Air 08/15/24 22:44 08/15/24 22:37 Room Air 08/15/24 19:36 Room Air 08/15/24 15:51 Room Air 08/15/24 14:43 08/15/24 11:29 Room Air Cardiovascular + regular rate Respiratory + respiratory effort normal Pre-Sedation Airway Assessment Smoking Status: Never smoker Hx Sleep Apnea: No Hx Difficult Intubation: No Short, Thick Neck: No Thyromental Distance: > or= 3.5 Finger Breadths Oral Cavity: + WNL Mallampati Class: III ASA: ASA3 NPO Status Date of Last Intake of Fluids: 08/15/24 Time of Last Intake of Fluids: 20:00 Date of Last Intake of Solid Food: 08/15/24 Time of Last Intake of Solid Foods: 20:00 Procedure Planning Contraindications for Sedation: none Current Medications Reviewed: Yes Notes The planned sedation has been discussed with the patient. Informed Consent was obtained. I have identified the patient, determined the appropriateness of sedation and have assessed the patient immediately prior to the procedure. All medicine(s) and interventions are by my order.
[2024-08-16 08:40] LABS: Estimated Average Glucose 128 mg/dl; Hemoglobin A1C 6.1 % (4.5-5.6)
[2024-08-16] MEDS: HEPARIN (PORCINE) 1000 UNIT/ML 10 ML (CATH LAB USE ONLY) ONE (09:02)
[2024-08-16] MEDS: fentaNYL citrate PF 100 MCG/2 ML VIAL ONE (09:02)
[2024-08-16] MEDS: MIDAZOLAM HCL 1 MG/ML 2ML VIAL ONE (09:02)
[2024-08-16] MEDS: niCARdipine HCL INJ 2.5 MG/ML 10 ML AMP ONE (09:03)
[2024-08-16] MEDS: OPTIRAY 350 ONE (09:03)
[2024-08-16] MEDS: NITROGLYCERIN/D5W 100MCG/ML 20ML SYR ONE (09:04)
[2024-08-16] MEDS: CLOPIDOGREL BISULFATE 300 MG TAB ONE (09:04)
--- NOTE | 2024-08-16 09:09 | Post Anesthesia Assessment ---
Date of Service August 16, 2024 Post Sedation Assessment Vital Signs Temp Pulse Pulse Pulse Resp BP Pulse Ox 08/16/24 07:58 75 08/16/24 07:50 78 16 128/100 98 08/16/24 07:45 97.7 F 70 18 135/88 97 08/16/24 06:21 97.9 F 71 18 148/88 H 96 08/16/24 03:12 98.1 F 93 H 18 159/99 H 97 08/15/24 22:44 76 08/15/24 22:37 98.1 F 69 16 131/84 96 08/15/24 19:36 97.7 F 85 20 112/74 95 08/15/24 15:51 98.6 F 73 18 155/97 H 96 08/15/24 14:43 85 08/15/24 11:29 97.7 F 64 17 145/92 H 97 O2 Del Method 08/16/24 07:58 08/16/24 07:50 Room Air 08/16/24 07:45 Room Air 08/16/24 06:21 Room Air 08/16/24 03:12 Room Air 08/15/24 22:44 08/15/24 22:37 Room Air 08/15/24 19:36 Room Air 08/15/24 15:51 Room Air 08/15/24 14:43 08/15/24 11:29 Room Air Recovery Score Activity: Moves 4 extremities Respiration: Deep Breath/Cough Circulation: +/-20% PreAnes Value Consciousness: Fully Awake Oxygen Saturation: O2 needed for >90% Discharge Sedation Level of Care: Fast Track Phase II Post Sedation Plan On clinical assessment, the patient appears to have tolerated the sedation without complications. Patient is recovering as anticipated. Patient will continue to be monitored by nursing and may be discharged when sedation discharge criteria are met per below protocol. Upon Completions of procedure up to 15 minutes continue every 5 minute vital signs and the P.A.R. score; then discharge to a Phase I or Fast Track to Phase II per the following guidelines: * Discharge Patient to appropriate Phase II area if PAR is 8 or greater or return to pre- procedure baseline. The post - procedure orders will be as directed. * If PAR score is less than 8 or not return to pre-procedure baseline then patient will follow Phase I monitoring till PAR is reached for Phase II. The Phase I may be done in procedure room or may call to secure a Phase I area. * If naloxone or flumazenil are used for reversal, hold in Phase I for continued monitoring from when last reversal dose was given for a minimum of 60 minutes or longer pending the nurse and/or physician discretion of patient condition before discharge to Phase II. Please call the Sedation Physician to re-evaluate and complete post-note for discharge to Phase II area. Do NOT discharge from procedure sedation or Phase 1 until post- sedation evaluation note is complete by procedure /sedation MD Sedation Discharge Instructions to be given to the patient at discharge to home.
--- NOTE | 2024-08-16 09:17 | Cardiac Catheterization ---
[facility] Data: Workplace Rehabilitation Officer Cardiac Status Clinical evaluation leading to the procedure CAD Presenation: Non STEMI Anginal Classification: CCS IV Diagnostic Physicians Name: Adolfo Maravilla MD Closure Device Recommendations: Medical Therapy and/or Counseling Cardiac Cath Procedure Full Procedure Date August 16, 2024 Pre-Procedure Diagnosis Pre-Procedure Diagnosis: Non STEMI AUC Score AUC Score: 8 Post-Procedure Diagnosis Post-Procedure Diagnosis: Severe CAD, Successful PCI and Normal Intracardiac Pressures Procedure(s) Performed Procedure(s) Performed: Coronary Angiography, Left Heart Cath and Drug Eluting Stent Roof Cement And Paint Maker Adolfo Maravilla MD Top Lift And Automatic Window Repairer(s) Carolyn Estimated Blood Loss Estimated Blood Loss: 10 Medication(s) Medication(s): Clopidogrel, Fentanyl, Heparin, Lidocaine 1%, Nicardipine, Nitroglycerin and Versed Summary of Findings Indication: NSTEMI Access: 6 Fr slender right radial artery Catheters: [place], diagnostic JL 4, pigtail, EBU 3.5 guide Findings: LM -normal caliber, no significant disease. LAD -large caliber, 20% ostial/proximal disease, earlymid LAD ectatic at takeoff of first septal followed by 90% focal stenosis prior to takeoff of small D2. Remainder of LAD without significant disease and wraps around apex. Small to medium D3 without disease. Circumflex -large caliber, no significant disease. Medium high OM1 without disease. Large OM 3 without disease. RCA -dominant, medium caliber, no significant disease. Medium RPDA with luminal irregularities. LVEDP -7 -- PCI -- Antithrombotic therapy: Heparin, clopidogrel Procedure: Left main cannulated with EBU 3.5 guide Pre-procedure flow SINAN 3 [place] blue wire passed across lesion into distal vessel Mid LAD lesion predilated with 3.0 compliant balloon Dilated lesion stented with 4.0 x 18 mm [place] drug-eluting stent Stent post-dilated with 4.5 noncompliant balloon IC vasodilators administered for spasm Post procedure SINAN 3 flow, stent well expanded with minimal residual stenosis and no apparent cardiac complications. Arterial Closure: TR band Summary: 1. Severe single vessel coronary artery disease -90% earlymid LAD stenosis 2. Normal intracardiac filling pressure 3. Successful PCI of mid LAD with single drug-eluting stent (4.0 x 18 mm [place]; postdilated with 4.5 NC). Recommendations: To PCU for continued monitoring Loaded with clopidogrel 600 mg in Workplace Rehabilitation Officer Continue dual-antiplatelet therapy for at least 1 year Continue statin, and ASCVD risk factor modification Consult cardiac Rehab Hemodynamics Rest Ao:: Final Ao: LV: 124/7 Recommendations Recommendations: Medical Therapy and/or Counseling Specimens Specimens: None Radiation Exposure (mGy) 1321 Contrast (mls) 95 Anesthesia Moderate [id number] Procedural Complication(s) None Disposition PCU I attest to the content of the Intraoperative Record and any orders documented therein. Any exceptions are noted below. [facility] Card Cath Procedure Codes Cardiac Catheterization Procedure 1: Cardiovascular Cath Procedures: 21760 Coronaries and LHC (+/-LV) Moderate Sedation Procedure 1: Sedation/Anesthesia: 63137 Mod Sedation by the same physician;Init15 Min Child Age 5 & Up Procedure 2: Sedation/Anesthesia: 69651 Mod Sedation by the same physician; Ea [id number] Minutes Stenting Procedure 1: Cardiovascular Stent Procedures: 35204 Perc transcatheter placement of intracoronary stent(s), with ang PG Care Time/CCT Total # of Minutes Spent Total Time Spent with Patient: Total time spent is greater than 50% in coordination of care (as documented) at patient's floor/unit and/or counseling patient:
--- NOTE | 2024-08-16 09:39 | Cardiology Progress Note ---
Date of Service August 16, 2024 Assessment & Plan (1) Non-ST elevation OK (NSTEMI): (2) Chest pain: (3) History of TIA (transient ischemic attack): (4) Hyperlipidemia: (5) Hypertension: Plan Appreciate Dr. Maravilla assistance with cath. Anticipate DC in am 1 year on DAPT; life long ASA, BB and statin. Goal LDL < 50-60 given CAD. I would like to see the patient in follow up in 2 weeks. Thank you for allowing me to participate in care of this very nice gentleman. I look forward to participating in his care with you. Admission and Anticipated Discharge Date Admission Date: August 14, 2024 Subjective Without further CP cath reviewed with patient and family-very tight LAD lesion stented. Review of Systems Review of Systems: All systems reviewed & are unremarkable except as noted in HPI & below Physical Exam Physical Exam: Awake alert oriented in no distress comfortable with no pain Respiratory: normal respiratory effort, lungs clear to auscultation Cardiovascular: RRR, no murmur, no edema Results & Data Vital Signs (Past 12 Hours) Vital Signs Temp Pulse Pulse Pulse Resp BP Pulse Ox 08/16/24 09:13 84 14 115/81 94 08/16/24 07:58 75 08/16/24 07:50 78 16 128/100 98 08/16/24 07:45 36.5 C 70 18 135/88 97 08/16/24 06:21 36.6 C 71 18 148/88 H 96 08/16/24 03:12 36.7 C 93 H 18 159/99 H 97 08/15/24 22:44 76 08/15/24 22:37 36.7 C 69 16 131/84 96 O2 Del Method 08/16/24 09:13 Room Air 08/16/24 07:58 08/16/24 07:50 Room Air 08/16/24 07:45 Room Air 08/16/24 06:21 Room Air 08/16/24 03:12 Room Air 08/15/24 22:44 08/15/24 22:37 Room Air Laboratory Results Abnormal lab results 08/15/24 08/16/24 08/16/24 Range/Units 11:52 05:37 08:52 WBC 16.03 H (4.8-10.8) K/ul Activ Coag Time Kaolin 262 H (94-140) SECONDS Glucose 110 H (70-99(Fasting)) mg/dl Hemoglobin A1c 6.1 H (4.5-5.6) % Troponin I High Sens 45.2 H D (0-20) pg/ml ECG Additional Comments: ECG marked anteroseptal ST-T abnormality
[2024-08-16] MEDS: SODIUM CHLORIDE 0.9% 1,000 ML IV SCH (10:20)
--- NOTE | 2024-08-16 16:01 | Hospitalist Progress Note ---
Date of Service August 16, 2024 Assessment & Plan (1) CAD (coronary artery disease), ely [place] coronary artery: Plan: P/w unstable angina, NSTEMI. With TWIs in anterolat leads new from 2018, elevated trop at 115. Risk factors of HTN, gender, age. Started on heparin gtt and was chest pain free except one brief occurrence Echo with preserved EF and without wall motion abnormalities or valvular disease Cardiology consulted and recommended cardiac cath on Thursday 08/16--> showed 90% mid LAD stenosis-had one KYLE placed to LAD-doing well post-cath Dc heparin and started DAPT with ASA and Plavix (loaded in lab tech) Changed simvastatin to Crestor 20mg daily Continue home Toprol XL Resume home lisinopril for elevated BPs Monitor on tele for arrhythmias Gave radial cath precautions/restrictions F/u with Cardiology as outpt in 2 weeks and recommend cardiac rehab (2) Hypertension: Plan: BPs elevated with holding lisinopril-resume ACEi Continue home metoprolol and Hytrin (3) Hyperlipidemia: Plan: Simvastatin switched to rosuvastatin 20 mg on admission lipid panel acceptable (4) Pre-diabetes: Plan: Hemoglobin A1c here is 6.1% Recommend dietary and lifestyle changes Consider GLP-1 or SGLT2i given CAD and prediabetes (5) Benign prostate hyperplasia: Plan: No acute issues-continue home terazosin Resume oxybutynin in AM (6) Gastro-esophageal reflux: Plan: Continue PPI, no acute issues Plan DVT prophylaxis: heparin gtt Disposition: Continued stay in PCU, plan to dc to home tomorrow if doing well/stable overnight CODE STATUS: Full code Admission and Anticipated Discharge Date Admission Date: August 14, 2024 Subjective Pt had some CP overnight with walking to the bathroom, repeat ECG showed more pronounced TWIs anterolaterally. This improved with rest. Had cardiac cath this AM with KYLE placed to LAD. I saw him after cath and he was feeling well, no CP or SOB, no headache or nausea. Tele with NSR, PACs, PVCs, rates 70-80s Physical Exam Constitutional: WD/WN, vitals as above Respiratory: normal respiratory effort, lungs clear to auscultation Cardiovascular: RRR, no murmur, no edema Gastrointestinal (Abdomen): normal bowel sounds, soft, nontender, no hepatosplenomegaly Musculoskeletal: Extremities: + extremities abnormal to inspection (Right wrist with dressing c/d/i, no hematoma) Psychiatric: A+Ox3, euthymic affect Results & Data Results & Data Vital Signs (Past 12 Hours) Vital Signs Temp Pulse Pulse Pulse Resp BP Pulse Ox 08/16/24 10:58 118/88 08/16/24 10:43 87 149/95 H 08/16/24 10:14 36.4 C L 81 16 120/82 93 08/16/24 09:45 81 14 94/78 L 93 08/16/24 09:30 84 14 102/71 93 08/16/24 09:13 84 14 115/81 94 08/16/24 07:58 75 08/16/24 07:50 78 16 128/100 98 08/16/24 07:45 36.5 C 70 18 135/88 97 08/16/24 06:21 36.6 C 71 18 148/88 H 96 O2 Del Method 08/16/24 10:58 08/16/24 10:43 08/16/24 10:14 Room Air 08/16/24 09:45 Room Air 08/16/24 09:30 Room Air 08/16/24 09:13 Room Air 08/16/24 07:58 08/16/24 07:50 Room Air 08/16/24 07:45 Room Air 08/16/24 06:21 Room Air Laboratory Results CBC, BMP, magnesium, HgbA1C reviewed PG Care Time/CCT Total # of Minutes Spent Total Time Spent with Patient: Total time spent is greater than 50% in coordination of care (as documented) at patient's floor/unit and/or counseling patient: Coding Level of Care Code 06792 SUB INP/OBS CARE 2/35MIN Diagnoses CAD (coronary artery disease), ely [place] coronary artery I25.10 Hypertension I10 Hyperlipidemia E78.5 Pre-diabetes R73.03 Benign prostate hyperplasia N40.0 Gastro-esophageal reflux K21.9
--- NOTE | 2024-08-16 16:49 | Electrocardiogram Report ---
Test Reason : Blood Pressure : */* mmHG Vent. Rate : 80 BPM Atrial Rate : 80 BPM P-R Int : 206 ms QRS Dur : 80 ms QT Int : 398 ms P-R-T Axes : 0 -21 145 degrees QTcB Int : 459 ms Poor data quality, interpretation may be adversely affected Normal sinus rhythm Abnormal ECG When compared with ECG of 16-Aug-2024 03:50, No significant change was found Confirmed by Adolfo Morel ([id number]) on 08/16/2024 4:49:41 PM Referred By: REFERRED SELF Confirmed By: Adolfo Morel
[2024-08-16] MEDS: lisinopril 10 MG TAB PO ONE (17:01)
[2024-08-17 05:59] LABS: Basophils # (auto) 0.05 K/uL (0.00-0.20); Basophils % (auto) 0.3 %; Eosinophils # (auto) 0.14 K/uL (0.00-0.50); Hematocrit (blood only) 43.4 % (42.0-52.0); Hemoglobin 14.4 g/dl (14.0-18.0); Immature Granulocytes # (auto) 0.13 K/uL (0.01-0.20); Immature Granulocytes % (auto) 0.9 %; Lymphocytes # (auto) 1.76 K/uL (1.20-3.40); Mean Corpuscular Hemoglobin 27.9 pg (25.0-34.0); Mean Corpuscular Hgb Conc 33.2 g/dL (32.0-36.0); Mean Corpuscular Volume 84.1 fL (80.0-100.0); Mean Platelet Volume 11.1 fL (9.4-12.4); Monocytes # (auto) 1.71 K/uL (0.11-0.59); Monocytes % (auto) 11.7 %; Neutrophils # (auto) 10.84 K/uL (1.40-6.50); Neutrophils % (auto) 74.1 %; Platelet Count 116 K/uL (130-400); RDW Coefficient of Variation 14.4 % (11.5-14.5); RDW Standard Deviation 43.9 fL (36.4-46.3); Red Blood Count 5.16 M/uL (4.70-6.10); White Blood Count 14.63 K/ul (4.8-10.8)
[2024-08-17 06:15] LABS: BUN Creatinine Ratio 17.2 (10-20); Calcium 9.1 mg/dl (8.6-10.3); Creatinine Clr Calc Pharmacy 65.7 ml/min; Est GFR (African American) 91.9 ml/min; Est GFR (Non-African American) 79.3 ml/min; Magnesium 1.9 mg/dl (1.7-2.4)
[2024-08-17 08:05] VITALS: BP 150/71; RESP 18; TEMP 98.4; O2SAT 92
[2024-08-17] MEDS ORDERED: OXYBUTYNIN CHLORIDE XL 5 MG TABCR PO SCH (09:00)
[2024-08-17] MEDS: lisinopril 10 MG TAB PO SCH (09:00)
[2024-08-17] MEDS: CHOLECALCIFEROL 25 MCG (1000 UNITS) TAB PO SCH (09:00)
[2024-08-17] MEDS: CLOPIDOGREL BISULFATE 75 MG TAB PO SCH (09:00)
[2024-08-17 10:19] VITALS: PULSE 89
--- NOTE | 2024-08-17 17:37 | Discharge Summary ---
Discharge Summary Date of Service August 17, 2024 Principal Dx & Hospital Course #1 = Principal Diagnosis (1) CAD (coronary artery disease), kiana coronary artery: P/w unstable angina, NSTEMI. EKG changes with T wave inversions and elevated trop at 115. Risk factors of HTN, gender, age. Started on heparin gtt Echo with preserved EF and without wall motion abnormalities or valvular disease Cardiology consulted and recommended cardiac cath [facility] on Thursday 08/16--> showed 90% mid LAD stenosis-had one KYLE placed to LAD- doing well post-cath DAPT with ASA and Plavix (loaded in laboratory clerk) Changed simvastatin to Crestor 20mg daily Continue home Toprol XL Resume home lisinopril for elevated BPs Gave radial cath precautions/restrictions F/u with Cardiology as outpt in 2 weeks and recommend cardiac rehab (2) Hypertension: BPs elevated with holding lisinopril-resume ACEi Continue home metoprolol and Hytrin (3) Hyperlipidemia: Simvastatin switched to rosuvastatin 20 mg on admission lipid panel acceptable (4) Pre-diabetes: Hemoglobin A1c here is 6.1% Recommend dietary and lifestyle changes Consider GLP-1 or SGLT2i given CAD and prediabetes (5) Benign prostate hyperplasia: No acute issues-continue home terazosin Resume oxybutynin in AM (6) Gastro-esophageal reflux: Continue PPI, no acute issues Plan CODE STATUS: Full code Notes For Next Care Provider Likely need referral for cardiac rehab. Admission HPI Per Admitting Provider Ant is an 83-year-old male with a past medical history of TIA, hypertension, NSTEMI, pre-DM, BPH with LUTS who presents with intermittent chest pain for 3 days. Pain is intermittent and awoke him from sleep last night with a substernal quality. Had another episode of pain an hour and a half prior to presentation to the ER with a pressure-like sensation which caused him to present to the ER. No history of cardiac stents. Chest pain-free while in the ER. Troponin on admission is 109.8, EKG is normal sinus rhythm with no ST segment changes but new T wave inversions in anterior lateral leads compared to prior in 2019 Ant is seen at the bedside. He reports he has had intermittent chest pressure episodes lasting ~15 minutes. Substernal, did not radiate. Was more pressure than but with with 8/10 intensity No pain on admissions One episode thrusday, once jarrett, once this morning at rest. 4 total episodes Pt initially denies sweating and dyspnea, but his daughter in law notes he had to hold the counter, was bent over clutching his chest panting, and having to take deep breaths and breathing was not normal which the patient acknowledges "Yea I guess thats true" Highest level of exertion is splitting firewood and walking around at games. No limiting dypsnea, chest pain doing those activities recently. Does have a history of GERD on prilosec on hiatal hernia No history DM +history of HTN on lisinopril/metoprolol +HLD on simvastatin No leg swelling NO orthopnea No recent illnsses. No fevers, chills, or sweats no cough No nausea/vomtiing/diarrhea/constipation No history of heart disease/[place] No first degree relatives with heart disease MOther had a stroke in 70s Medical History: Reviewed Medications: Reviewed Surgical History: Reviewed Family history: Reviewed Allergies: Reviewed. NKDA Social History: No tobacco use. Social ETOH use 2-3 drinks per week total Code Status: Full Code Discharge Exam He seen in the company of his brother, patient doing well since preserve his brother no recurrent chest pain was able to ambulate across the room without difficulty Discharge Plan Discharge Items Patient Disposition: Home - Self-Care Reason For Visit: CHEST PAIN Discharge Diagnosis: coronary artery disease with angina mid Left anterior descending coronary artery stent Activity: Per Instructions section Activity Comment: no intentional exercise until follow up with cardiology and approved Non-emergency contact: Primary Care Provider and Jacquard Fixer Call non-emergency contact if: your symptoms worsen Follow-up/Referrals: Wilmer Hernandez MD [Primary Care Provider] - 08/23/24 10:00 am (Hospital Follow up scheduled for August 23, 2024 at 10:00 am.) Nereyda Moon DO [Physician] - (Hospital discharge papers faxed to Dr. Moon's office. They will contact you with a follow up appointment. ) Diet: Heart Healthy Addtl Attending Provider Instructions: ACTIVITY RECOMMENDATIONS: Excess manipulation of the wrist should be avoided for the next 24-48 hours. * No lifting over 2 pounds (approximately a 1/2 gallon of milk) with the utilized arm for 24 hours. * No strenuous activity such as bowling or tennis for 3 days. * Keep the site of the procedure covered with a bandage for 24 hours. *You may shower the day after the procedure. Do not take a tub bath or submerge the puncture site in water for the next 3 days. *Do not operate any motorized equipment for 3 days. SPECIAL CARE INSTRUCTIONS: The site may be slightly bruised and sore following your procedure. Should any of the following occur, contact the Dr. who performed your procedure. 1. Redness/inflammation, swelling, chills, or fever, or colored drainage at procedure site within 3-7 days after your procedure. 2. Coldness, discoloration, ongoing numbness, severe pain, or swelling. Expect mild tingling of hand and tenderness at the puncture site for up to three days. If this persists beyond three days, or other symptoms develop, notify the Dr. who performed your procedure. BLEEDING: If the procedure site on your wrist begins to bleed, do not panic 1. Place 1 or 2 fingers firmly just slightly above the insertion site to stop the bleeding. You may be able to feel your pulse as you hold pressure. 2. Lift your finger after 5 minutes to see if the bleeding has stopped. 3. Once the bleeding has stopped, gently wipe the wrist area clean with a bandage. * If the bleeding from your wrist does not stop after 10 minutes, or if there is a large amount of bleeding or spurting, call 911 (do not drive yourself to the hospital). SKIN IRRITATION: * You may experience some redness and/or swelling in the area where radiation was administered. If any skin irritation occurs, please contact your family physician. FOLLOW UP VISIT: Keep any scheduled doctor appointments. Pending Studies at Discharge: No Stand-Alone Forms: My [facility] [employer], Smoking Cessation Medications and DC Order Prescriptions: New clopidogrel 75 mg Tablet 75 mg PO QAM Qty: 90 3RF nitroglycerin [Nitrostat] 0.4 mg Tablet, Sublingual 0.4 mg sublingual Q5M PRN (Reason: chest pain) Qty: 1 2RF rosuvastatin 20 mg Tablet 20 mg PO QAM Qty: 90 3RF Continued metoprolol succinate 50 mg tablet extended release 24 hr 50 mg PO QAM Qty: 90 3RF lisinopril 10 mg tablet 10 mg PO QAM Qty: 90 3RF terazosin 5 mg capsule 5 mg PO HS Qty: 90 3RF PreserVision AREDS [id number] capsule 1 cap PO BID mecobalamin (vitamin B12) 1 tab PO DAILY cholecalciferol (vitamin D3) 25 mcg (1,000 unit) capsule 25 mcg PO DAILY Qty: 30 0RF oxybutynin chloride 5 mg tablet extended release 24hr 5 mg PO DAILY Qty: 90 3RF aspirin [Aspir-81] 81 mg tablet,delayed release (DR/EC) 81 mg PO HS Prilosec OTC 20 mg tablet,delayed release (DR/EC) 20 mg PO QAM ibuprofen 200 mg Tablet 200 mg PO Q6H PRN (Reason: Pain) Discontinued simvastatin 20 mg tablet 20 mg PO HS Qty: 90 3RF Discharge Orders: Discharge Order (Routine); Ordered 08/17/24 Ordered By: Ant Kuhn/Other Patient Handouts: Prediabetes, 5 Steps for Eating Healthier Admission Data Admit Date/Time: 08/14/24 15:34 Attending Provider: Ant Payan Admit Provider: Ethan Welsh Primary Care Provider: Wilmer Hernandez Other Providers: Ethan Welsh; Nereyda Moon; Geoff Child Other Interventions: Discharge Summary Assessment (RN) Last Done: 08/17/24 10:16 Hospital Stay Data Consultations 08/14/24 14:49 ED Decision to Admit Stat 08/14/24 15:40 Consult Cardiology Routine 08/15/24 13:04 Consult Cardiac Catheterization Routine Procedures Performed Operation Date: 08/16/24 08:00 Actual Procedures s Cineradiography w/Routine Exam - Adolfo Maravilla MD p Drug Eluting Stent SGl Vessel - Adolfo Maravilla MD p Cath, Left with Cors and Vent - Adolfo Maravilla MD Diagnostic Imagining Performed 08/16/24 06:40 CL Cath Imgs for PACS use only Routine Pending Results Patient Have Any Pending Studies at Discharge: No Discharge Instructions Given to Patient (Per Discharging Provider) ACTIVITY RECOMMENDATIONS: Excess manipulation of the wrist should be avoided for the next 24-48 hours. * No lifting over 2 pounds (approximately a 1/2 gallon of milk) with the utilized arm for 24 hours. * No strenuous activity such as bowling or tennis for 3 days. * Keep the site of the procedure covered with a bandage for 24 hours. *You may shower the day after the procedure. Do not take a tub bath or submerge the puncture site in water for the next 3 days. *Do not operate any motorized equipment for 3 days. SPECIAL CARE INSTRUCTIONS: The site may be slightly bruised and sore following your procedure. Should any of the following occur, contact the Dr. who performed your procedure. 1. Redness/inflammation, swelling, chills, or fever, or colored drainage at procedure site within 3-7 days after your procedure. 2. Coldness, discoloration, ongoing numbness, severe pain, or swelling. Expect mild tingling of hand and tenderness at the puncture site for up to three days. If this persists beyond three days, or other symptoms develop, notify the Dr. who performed your procedure. BLEEDING: If the procedure site on your wrist begins to bleed, do not panic 1. Place 1 or 2 fingers firmly just slightly above the insertion site to stop the bleeding. You may be able to feel your pulse as you hold pressure. 2. Lift your finger after 5 minutes to see if the bleeding has stopped. 3. Once the bleeding has stopped, gently wipe the wrist area clean with a bandage. * If the bleeding from your wrist does not stop after 10 minutes, or if there is a large amount of bleeding or spurting, call 911 (do not drive yourself to the hospital). SKIN IRRITATION: * You may experience some redness and/or swelling in the area where radiation was administered. If any skin irritation occurs, please contact your family physician. FOLLOW UP VISIT: Keep any scheduled doctor appointments. Total Time Total Time Spent Total Time Spent (In Minutes): It required greater than 30 minutes to prepare this patient for discharge. Coding Level of Care Code 65352 INP/OBS DISCH >30 MIN Diagnoses CAD (coronary artery disease), kiana coronary artery I25.10 Hypertension I10 Hyperlipidemia E78.5 Pre-diabetes R73.03 Benign prostate hyperplasia N40.0 Gastro-esophageal reflux K21.9
== END 2024-08-17 12:43 | disposition home or self-care (01) | DRG 322 ==
LOC: ED 12:53 → 4W 15:34 → SUATTDRO 15:34 → 4W 17:07